=== PATIENT | male | born 1945 | race Caucasian/White ===

== ENCOUNTER 2018-01-28 22:46 | Observation (INO) ==
[2018-01-28 23:36] LABS: Basophils # 0.1 K/mcL (0.0-0.2); Basophils % 0.9 %; Eosinophils # 0.2 K/mcL (0.0-0.6); Eosinophils % 3.6 %; Hematocrit 39.1 % (37.5-50.1); Hemoglobin 13.1 g/dL (12.9-16.9); Immature Granulocytes % 0.2 % (0-4); Lymphocytes # 1.5 K/mcL (0.6-4.6); Lymphocytes % 23.7 %; Mean Corpuscular HGB Conc 33.5 g/dL (31.6-35.5); Mean Corpuscular Hemoglobin 29.8 pg (28.0-33.3); Mean Corpuscular Volume 89.1 fL (83.0-100.0); Mean Platelet Volume 11.6 fL (9.4-12.4); Monocytes # 0.4 K/mcL (0.0-1.3); Monocytes % 6.6 %; Neutrophils # 4.1 K/mcL (1.6-8.9); Platelet Count 115 K/mcL (140-400); Red Blood Count 4.39 M/mcL (4.19-5.50); Red Cell Distribution Width 14.3 % (11.5-14.5)
[2018-01-28 23:51] LABS: Bilirubin,Urine Negative (Negative); Blood,Urine Large (Negative); Clarity,Urine Cloudy (Clear); Color,Urine Yellow (Yellow); Glucose,Urine (UA) 100 mg/dL (Normal); Ketones,Urine Negative (Negative); Leukocyte Esterase,Urine Moderate (Negative); Nitrite,Urine Negative (Negative); Protein,Urine 30 mg/dL (Neg-Trace); Specific Gravity,Urine 1.026 (1.010-1.025); Urobilinogen,Urine Normal (Normal)
[2018-01-28 23:53] LABS: Hyaline Casts,Urine None Seen per lpf (None-Few); RBC,Urine TNTC per hpf (0-3); Squamous Epithelial Cell,Urine Moderate per lpf (None-Few)
--- NOTE | 2018-01-28 23:53 | Emergency Department Note ---
Disposition Clinical Impression: Chest discomfort Disposition: Admitted As Inpatient Condition: Fair Chest Pain HPI - General Chief Complaint: ED Chest Pain Stated Complaint: rib pain both sides injury from working Time Seen by Provider: 01/28/18 22:56 Source: patient Limitations: no limitations - History of Present Illness HPI Narrative: 72 year old male with diabetes presents with chest pain. Patient stated he lay down on his left side of body in work today. He suddenly felt a rock in his left side chest. He changed position to his right side. he felt a rock in right side chest as well. He had to stand up to relieve the pain. . Pt reported the uncomfortable of chest lasted around minutes. No shortness of breath. But the deep breath triggered bilateral ribs uncomfortable sometimes today. Pt has open heart surgery 16 years ago for aortic valve replacement. Pt complaint: chest pain Onset (ago): hour(s) (12) Duration: intermittent Onset: other Pain Location: left chest, right chest Severity scale (1-10): 8 Quality: other (rock in chest ) - Related Data Home Medications Medication Instructions Recorded Confirmed Albuterol Sulfate [Proair Hfa] 2 puff IH Q4H PRN 01/29/18 01/29/18 Aspirin Enteric Coated [Aspirin EC] 81 mg PO DAILY 01/29/18 01/29/18 Atenolol [Tenormin] 50 mg PO DAILY 01/29/18 01/29/18 Atorvastatin Calcium [Lipitor] 80 mg PO HS 01/29/18 01/29/18 Cholecalciferol (Vitamin D3) 2,000 unit PO DAILY 01/29/18 01/29/18 [Vitamin D3] Cyanocobalamin (Vitamin B-12) 1,000 mcg PO DAILY 01/29/18 01/29/18 [Vitamin B-12] Diltiazem CD (24hr) [Cardizem CD] 180 mg PO DAILY 01/29/18 01/29/18 Ezetimibe [Ezetimibe] 10 mg PO HS 01/29/18 01/29/18 Famotidine [Pepcid] 40 mg PO BID 01/29/18 01/29/18 Fenofibrate Nanocrystallized 145 mg PO DAILY 01/29/18 01/29/18 [Fenofibrate] Fish Oil/Dha/Epa [Fish Oil 1,200 1 cap PO DAILY 01/29/18 01/29/18 mg Fish Oil] Furosemide [Lasix] 40 mg PO DAILY 01/29/18 01/29/18 Losartan Potassium [Cozaar] 50 mg PO DAILY 01/29/18 01/29/18 Meclizine HCl [Verticalm] 25 mg PO HS 01/29/18 01/29/18 Potassium Citrate [Urocit-K] 10 meq PO BID 01/29/18 01/29/18 Rivaroxaban [Xarelto] 15 mg PO DAILY 01/29/18 01/29/18 Tamsulosin [Flomax] 0.4 mg PO HS 01/29/18 01/29/18 Allergies Allergy/AdvReac Type Severity Reaction Status Date / Time insulin glargine Allergy Rash Verified 01/29/18 09:36 [From [place]] Constitutional: Denies: fever, chills, weakness, weight change Eyes: Denies: eye pain, eye discharge, vision change ENT ED: Denies: ear pain, throat pain, dental pain, hearing loss, epistaxis, congestion, dysphagia Cardiovascular: Reports: chest pain. Denies: palpitations, dyspnea on exertion , edema, syncope Respiratory: Denies: cough, dyspnea, wheezes, hemoptysis, stridor Gastrointestinal: Denies: abdominal pain, nausea, vomiting, diarrhea, constipation, hematemesis, melena, hematochezia Genitourinary: Denies: urgency, dysuria, frequency, hematuria Musculoskeletal: Denies: back pain, neck pain, arthralgia, myalgia Integumentary: Denies: rash, abrasion, lesions Neurological: Denies: headache, weakness, numbness, paresthesias, confusion, abnormal gait, vertigo Psychiatric: Denies: anxiety, depression, suicidal thoughts, homicidal thoughts , auditory hallucinations, visual hallucinations Endocrine: Denies: fatigue Hematological/Lymphatic: Denies: easy bleeding, easy bruising Allergic/Immunologic: Denies: facial swelling, urticaria Chest Pain PMH - Past Medical History Medical history: Reports: arthritis, atrial fibrillation, coronary artery disease, diabetes, GERD, hyperlipidemia, hypertension, kidney stones, peripheral artery disease, valvular heart disease, other Surgical history: Reports: angioplasty/stent, cholecystectomy, coronary bypass ( CABG), other Psychiatric history: Reports: no psych history - Social History Smoking Status: Never smoker Alcohol use: Reports: none Drug use: Reports: none Physical Exam - General Limitations: no limitations General appearance: alert - Head Head exam: atraumatic, normocephalic, normal inspection - Eye Eye exam: Present: normal appearance, PERRL, EOMI - ENT ENT exam: normal exam, normal oropharynx, mucous membranes moist - Neck Neck exam: Present: normal inspection, full ROM, trachea midline - Chest Chest inspection: Present: normal inspection, symmetric chest wall rise, tenderness (mild tender to palpation on both side ribs) - Respiratory Respiratory exam: Present: normal lung sounds bilaterally - Cardiovascular Cardiovascular exam: Present: irregular rhythm. Absent: systolic murmur, diastolic murmur - Abdominal Exam Abdominal exam: Present: soft, Non-Tender. Absent: tenderness, distention, guarding, rebound, rigidity - Extremities Exam Extremities exam: Present: normal inspection, full ROM. Absent: tenderness, pedal edema - Back Exam Back exam: Present: normal inspection, full ROM. Absent: tenderness - Neurological Exam Neurological exam: Present: alert, oriented X3 - Psychiatric Psychiatric exam: Present: normal affect, normal mood - Skin Skin exam: Present: warm, dry, intact, normal color Course Vital Signs Temperature 97.7 F 01/28/18 22:57 Pulse Rate 86 01/28/18 22:57 Respiratory Rate 16 01/28/18 22:57 Blood Pressure 139/85 01/28/18 22:57 O2 Sat by Pulse Oximetry 95 01/28/18 22:57 Temperature 98.0 F 01/30/18 07:37 Pulse Rate 62 01/30/18 07:37 Respiratory Rate 20 01/30/18 07:37 Blood Pressure 130/82 01/30/18 07:37 O2 Sat by Pulse Oximetry 98 01/30/18 07:37 Oxygen Delivery Oxygen Delivery Room Air Chest Pain - MDM Narrative Medical decision making narrative: 72 year old male with history of DM, hypertension, hyperlipidemia, past open heart surgery presents with nontraumatic chest pain. Pt reported feeling rocks in ribs when working. The pain lasted couple of minutes. No associate with shortness of breath. But deep breath exacerbate the pain. Physical exam, irregular rhythm, no murmur, bilateral anterior ribs mild tender to palpation. Chest xray: no acute change. EKG: a-fib. labs: negative troponin. cr. 1.[address] Saavedra saw the patient as well, considering the past heart history, heart score 4, will admit the patient for chest pain rule out. - Lab Data Result diagrams: 01/30/18 06:34 01/30/18 06:34 Lab Results 01/28/18 01/28/18 01/28/18 Range/Units 23:10 23:10 23:44 WBC 6.3 (4.3-11.1) K/mcL RBC 4.39 (4.19-5.50) M/mcL Hgb 13.1 (12.9-16.9) g/dL Hct 39.1 (37.5-50.1) % MCV 89.1 (83.0-100.0) fL MCH 29.8 (28.0-33.3) pg MCHC 33.5 (31.6-35.5) g/dL RDW 14.3 (11.5-14.5) % Plt Count 115 L (140-400) K/mcL MPV 11.6 (9.4-12.4) fL Immature Gran % 0.2 (0-4) % Seg Neutrophils % 65.0 % Lymphocytes % 23.7 % Monocytes % 6.6 % Eosinophils % 3.6 % Basophils % 0.9 % Neutrophils # 4.1 (1.6-8.9) K/mcL Lymphocytes # 1.5 (0.6-4.6) K/mcL Monocytes # 0.4 (0.0-1.3) K/mcL Eosinophils # 0.2 (0.0-0.6) K/mcL Basophils # 0.1 (0.0-0.2) K/mcL Sodium 141 (136-145) mEq/L Potassium 4.0 (3.5-5.1) mEq/L Chloride 103 (98-107) mEq/L Carbon Dioxide 28 (23-29) mEq/L BUN 33 H (8-23) mg/dL Creatinine 1.85 H (0.70-1.30) mg/dL Est GFR ( Amer) 44 L (> 60) Est GFR (Non-Af Amer) 36 L (> 60) BUN/Creatinine Ratio 18 (6-26) Glucose 208 H (70-105) mg/dL Calculated Osmolality 305 H (280-300) Calcium 10.4 H (8.6-10.3) mg/dL Total Bilirubin 0.8 (0.3-1.0) mg/dL AST 16 (13-39) Units/L ALT 11 (7-52) Units/L Alkaline Phosphatase 38 (34-104) Units/L Troponin I < 0.03 (< 0.04) ng/mL Serum Total Protein 7.0 (6.4-8.9) g/dL Albumin 4.7 (3.5-5.7) g/dL Globulin 2.3 L (2.4-3.5) g/dL Albumin/Globulin Ratio 2.0 (1.1-2.2) Urine Color Yellow (Yellow) Urine Clarity Cloudy A (Clear) Urine pH 6.0 (5.0-8.0) pH Units Ur Specific [place] 1.026 H (1.010-1.025) Urine Protein 30 H (Neg-Trace) mg/dL Urine Glucose (UA) 100 H (Normal) mg/dL Urine Ketones Negative (Negative) mg/dL Urine Blood Large H (Negative) Urine Nitrite Negative (Negative) Urine Bilirubin Negative (Negative) Urine Urobilinogen Normal (Normal) mg/dL Ur Leukocyte Esterase Moderate H (Negative) Urine Microscopic RBC TNTC H (0-3) per hpf Urine Microscopic WBC 3-5 H (0-3) per hpf Ur Squamous Epith Cells Moderate H (None-Few) per lpf Calcium Oxalate Crystal Present Urine Bacteria Few (None-Few) per hpf Hyaline Casts None Seen (None-Few) per lpf Urine Mucus Few (Few) Ur Culture Indicated? YES A (NO) Heart Score - Score History: Moderately Suspicious EKG: Normal Age: Greater than 65 Risk Factors: 1-2 risk factors Troponin: Less than normal limit HEART Score Total: 4 Attestation Statement - Attestation Attestation: I examined this patient and my medical decision-making was reviewed with the Resident Physician. I agree with the documented findings, disposition and treatment plan as described except to the extent set forth below. Chest pain, HEART score is 4, will need admission due to intermittent nature of pain and significant risk factors.
[2018-01-29 00:02] LABS: Troponin I < 0.03 ng/mL (< 0.04)
[2018-01-29 00:03] LABS: Alanine Aminotransferase 11 Units/L (7-52); Albumin 4.7 g/dL (3.5-5.7); Alkaline Phosphatase 38 Units/L (34-104); Aspartate Amino Transferase 16 Units/L (13-39); BUN/Creatinine Ratio 18 (6-26); Bilirubin,Total 0.8 mg/dL (0.3-1.0); Blood Urea Nitrogen 33 mg/dL (8-23); Calcium 10.4 mg/dL (8.6-10.3); Carbon Dioxide 28 mEq/L (23-29); Chloride 103 mEq/L (98-107); Globulin 2.3 g/dL (2.4-3.5); Glucose 208 mg/dL (70-105); Osmolality,Calculated 305 (280-300); Sodium 141 mEq/L (136-145); eGFR For African Americans 44 (> 60); eGFR For Non-African Americans 36 (> 60)
[2018-01-29 00:14] LABS: Bacteria,Urine Few per hpf (None-Few); Calcium Oxalate Crystals,Urine Present; Mucus,Urine Few (Few)
[2018-01-29] MEDS ORDERED: Aspirin 325 MG TABLET PO ONE (02:29)
[2018-01-29] MEDS ORDERED: traMADol 50 MG TABLET PO PRN (04:45)
[2018-01-29] MEDS ORDERED: Naloxone 0.4 MG/ML INJ IVP PRN (04:45)
[2018-01-29] MEDS ORDERED: Acetaminophen 325 MG TABLET PO PRN (04:45)
[2018-01-29] MEDS ORDERED: Nitroglycerin 0.4 MG TAB.SUBL SL PRN (04:49)
--- NOTE | 2018-01-29 04:58 | Internal Med History&Physical ---
Date of Encounter: 01/29/18 Time of Encounter: 04:00 Internal Medicine - H&P: HPI Chief complaint: chest pain Admitted From: Emergency Dept Plans for Post Hospital Care: Home History of present illness: Mr. Sarmiento is a 72 year old male who presents to the ER tonight with complaints of bilateral chest pain. He was seen and evaluated in the ER and admitted to hospitalist service for further workup and care. Upon my assessment of the patient, patient states he had pain in his chest which was easily reproducible and related to muscle/skeletal etiology. 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 He changed positions while lying on his right side and turned to his left side to alleviate the pain from his right side. He then subsequently developed pain in his left side ribs as well. Because of the chest pain, he came to ER for evaluation. He was admitted for chest pain given his prior history of valve surgery. Upon my history and exam, I suspect this is musculoskeletal etiology and not true cardiac pain whatsoever. He denies any chest pain on exertion, shortness of breath, palpitations, or racing heartbeats. He admits that this is easily reproducible chest wall pain and I was able to easily reproduce his chest pain on exam and palpation of his both lower ribs. He has a history of nonobstructive coronary disease and had a heart catheterization 2 years ago with minimal coronary disease noted. At the present time, he denies any trauma or injury to his chest wall. He denies any recent falling or syncopal spells. I discussed with him my plan to image his chest with rib view x-rays and to obtain an echocardiogram. Meanwhile, we will cycle troponins and monitor him closely. If the above are negative, he can likely be discharged home with close outpatient follow-up. He does see Dr. Correa from cardiology. I am not convinced he needs a stress test as his pain does not appear to be cardiac in nature. This can be done as an outpatient as well and if necessary. He agreed and voiced understanding. Past Med Surg Social Fam HX - Past Medical History Attestation: Yes The following information was validated with the patient. Source: patient, old records reviewed Medical history: arthritis, atrial fibrillation, coronary artery disease, diabetes, GERD, hyperlipidemia, hypertension, kidney stones, peripheral artery disease, valvular heart disease, other Additional medical history: AAA Psychiatric history: no psych history - Past Surgical History Surgical History: angioplasty/stent, cholecystectomy Additional surgical history: STONE EXTRACTION (RIGHT). BIOPROSTHETIC AVR - Social History Smoking Status: Never smoker Smokeless Tobacco Status: No Alcohol use: none Drug use: none Current living situation: Home Activity Level: Independent ambulation Recent Out of Country Travel Within the Last 8 Weeks: No - Family History Mother Living Status: Hx Family Cardiac Disorders: Yes (HTN, DC) Hx Family Respiratory Disorders: No Hx Family Cancer: No Hx Family GI Disorders: No Hx Family Endocrine Disorder: No Hx Family Neuromuscular Disorders: No Hx Family Neurologic Disorders: No Hx Family HEENT Disorders: No Hx Family Autoimmune Disorders: No Internal Medicine - H&P: Meds Aspirin [Adult Low Dose Aspirin EC] 81 mg PO QAM 04/30/15 [History] Atenolol [Tenormin] 50 mg PO QAM 04/30/15 [History] Atorvastatin Calcium [Lipitor] 80 mg PO QPM 04/30/15 [History] Cholecalciferol (Vitamin D3) [Vitamin D3] 2,000 unit PO QAM 04/30/15 [History] Ezetimibe [Zetia] 10 mg PO QPM 04/30/15 [History] Fenofibrate Nanocrystallized [Tricor] 145 mg PO QPM 04/30/15 [History] Furosemide [Lasix] 40 mg PO QAM 04/30/15 [History] Nitroglycerin [Nitrostat] 0.4 mg SL AD PRN 04/30/15 [History] [place]-3/Dha/Epa/Fish Oil [Fish Oil 1,000 mg Softgel] 1,000 mg PO QAM 04/30/15 [ History] Rivaroxaban [Xarelto] 15 mg PO QAM 04/30/15 [History] Tamsulosin [Flomax] 0.4 mg PO QPM 04/30/15 [History] Albuterol Sulfate [Proair Hfa] 2 puff IH Q4H PRN 10/17/15 [History] Losartan [Cozaar] 50 mg PO QAM 10/17/15 [History] raNITIdine HCl [Zantac] 150 mg PO QPM 10/17/15 [History] Diltiazem HCl [Cardizem LA] 180 mg PO DAILY 08/22/16 [History] Famotidine 40 mg PO HS 08/22/16 [History] Folic Acid 1 mg PO DAILY #30 tablet 08/08/17 [Rx] 3 Allergy/AdvReac Type Severity Reaction Status Date / Time insulin glargine Allergy Rash Verified 01/28/18 23:01 [From Lantus] - Constitutional Constitutional: no chills, no fever(s) - EENT Eyes: no change in vision Ears: no ear pain, no tinnitus Nose, mouth and throat: no nasal congestion, no sore throat - Cardiovascular Cardiovascular ROS IM: chest pain, no dyspnea, no dyspnea on exertion, no edema , no lightheadedness, no palpitations - Respiratory Respiratory: no cough, no hemoptysis, no dyspnea on exertion, no chest congestion, no excessive phlegm production, no change in phlegm color, no pain with cough - Gastrointestinal Gastrointestinal: no abdominal pain, no diarrhea, no hematemesis, no hematochezia, no melena, no nausea, no vomiting - Genitourinary Genitourinary ROS male: no dysuria, no flank pain - Musculoskeletal Musculoskeletal ROS IM: no arthralgias, no back pain - Integumentary Integumentary IM: no rash, no jaundice - Neurological Neurological ROS: no dizziness, no focal weakness, no frequent falls, no headache(s) - Psychiatric Psychiatric: no anxiety, no depression - Endocrine Endocrine IM: no polydipsia, no polyuria - Hematologic/Lymphatic Hematologic/Lymphatic: no easy bruising, no lymphadenopathy - Allergic/Immunologic Allergic/Immunologic: no wheezing, no GI upset with certain foods - Constitutional Vitals: Temp Pulse Resp BP Pulse Ox 97.7 F 61 16 148/82 96 01/29/18 01:18 01/29/18 01:18 01/29/18 01:18 01/29/18 01:18 01/29/18 01:18 General appearance: Present: cooperative, A&O X 3, pleasant, no acute distress, answers questions appropriately - Head Head exam: Present: atraumatic, normal inspection - Eye Eye exam: Present: EOMI, normal appearance, PERRL. Absent: scleral icterus Pupils: Present: normal accommodation - ENT ENT exam: Present: mucous membranes dry, normal exam, normal oropharynx - Neck Neck exam general surgery: Present: full ROM, supple. Absent: tenderness, nuchal rigidity, thyromegaly - Expanded Neck Exam Neck exam: Absent: carotid bruit - Respiratory Respiratory exam: Present: chest wall tenderness (easily reproducible pin in both lower ribs upon palpation), CTAB. Absent: rales, rhonchi, wheezes - Cardiovascular Cardiovascular exam: Present: irregular rhythm, +S1, +S2, systolic murmur. Absent: diastolic murmur, JVD - GI/Abdominal GI/Abdominal exam: Present: normal bowel sounds, soft. Absent: guarding, hepatomegaly, mass, rebound, splenomegaly, tenderness - Extremities Exam Extremities exam: Present: full ROM, normal capillary refill, warm, radial pulses palpable and symmetrical. Absent: calf tenderness, joint swelling, pedal edema - Back Exam Back exam: Absent: CVA tenderness (L), CVA tenderness (R) - Neurological Exam Neurological exam: Present: alert, CN II-XII intact, oriented X3, no focal deficits - Psychiatric Psychiatric exam: Present: normal affect, normal mood - Skin Skin exam: Present: dry, intact, warm Internal Med - H&P Results - Labs CBC & Chem 7: 01/28/18 23:10 01/28/18 23:10 - EKG Data -: EKG Interpreted by Myself - EKG Data Prior EKG available for review: no EKG comments: 01/29/18 05:02 Atrial Fibrillation with rate control - Diagnostic Studies Chest x-ray Status: image reviewed by me (negative; do not appreciate rib fractures ) - Assessment and plan (1) Chest pain Current Visit: Yes Status: Acute Assessment and plan: 1. Will order serial troponins and EKG's. 2. Will order ECHO to assess LV function and to assess AVR. 3. Strongly suspect musculoskeletal etiology. Qualifiers: Chest pain type: intercostal pain Qualified Code(s): R07.82 - Intercostal pain (2) Atrial fibrillation Current Visit: Yes Status: Chronic Assessment and plan: 1. Continue home meds and adjust as needed. 2. Continue home dose of Xarelto. Qualifiers: Atrial fibrillation type: chronic Qualified Code(s): I48.2 - Chronic atrial fibrillation (3) CKD (chronic kidney disease) Current Visit: No Status: Chronic Assessment and plan: 1. Will hold diuretics for now and other potential nephrotoxins. 2. Hydrayte with IVF and monitor I/O. 3. Nephrology may need to be consulted for ongoing issues. Qualifiers: Chronic kidney disease stage: stage 3 (moderate) Qualified Code(s): N18.3 - Chronic kidney disease, stage 3 (moderate) (4) DVT prophylaxis Current Visit: No Status: Acute Assessment and plan: 1. Continue home dose of Xarelto.
--- NOTE | 2018-01-29 07:20 | Electrocardiograph Report ---
[place] [id number] Test Date: 2018-01-28 Pat Name: Lebron [place] Department: 104 Room: 3B Gender: M [employer] Developer: MIRELLA : 1945 Requested By: Elver Atkinson Order Number: [id number] Reading MD: Marin White Measurements Intervals [place] Rate: 60 P: PA: 0 QRS: 61 QRSD: 109 T: 23 QT: 404 QTc: 405 Interpretive Statements ATRIAL FIBRILLATION Electronically Signed On 01-29-2018 7:18:15 EDT by Marin White
[2018-01-29] MEDS: Cholecalciferol (D-3) 1,000 UNIT TABLET PO SCH (08:59)
[2018-01-29] MEDS: Diltiazem CD (24hr) 180 MG CAPSULE PO SCH (08:59)
[2018-01-29] MEDS: Aspirin Enteric Coated 81 MG Tablet PO SCH (08:59)
[2018-01-29] MEDS: Folic Acid 1 MG TABLET PO SCH (09:00)
[2018-01-29] MEDS: *HR* Rivaroxaban 15 MG TABLET PO SCH (09:00)
--- NOTE | 2018-01-29 13:00 | Internal Med Progress Note ---
Date of Encounter: 01/29/18 Time of Encounter: 12:58 - Assessment and plan (1) Chest pain Current Visit: Yes Status: Acute Assessment and plan: Atypical chest pain and Appears to be musculoskeletal as the patient is having reproducible pain to palpation along the bilateral costal margins I strongly believe this to be musculoskeletal in origin Patient denies any shortness of breath, dizziness, diaphoresis, nausea, palpitations Cardiac enzymes negative 3 EKG reveals atrial fibrillation, no ST changes concerning for ischemia Echocardiogram pending Hold off on additional cardiac workup at this time Qualifiers: Chest pain type: intercostal pain Qualified Code(s): R07.82 - Intercostal pain (2) CKD (chronic kidney disease) Current Visit: Yes Status: Chronic Assessment and plan: History of CKD stage III Appears to have an acute on chronic kidney injury Holding diuretics and potential nephrotoxins IVF, monitor I's and O's Consider nephrology consult if renal function does not improve tomorrow Daily BMP Qualifiers: Chronic kidney disease stage: stage 3 (moderate) Qualified Code(s): N18.3 - Chronic kidney disease, stage 3 (moderate) (3) Atrial fibrillation Current Visit: Yes Status: Chronic Assessment and plan: History of atrial fibrillation Review of telemetry reveals A. fib with rate control Continue current home medications and adjust as necessary Continue Xarelto Qualifiers: Atrial fibrillation type: chronic Qualified Code(s): I48.2 - Chronic atrial fibrillation (4) [id number] kidney injury Current Visit: Yes Status: Acute Assessment and plan: Etiology unclear Likely due to diuretic use See above Qualifiers: Acute renal failure type: unspecified Chronic kidney disease stage: stage 3 (moderate) Qualified Code(s): N17.9 - Acute kidney failure, unspecified; N18.3 - Chronic kidney disease, stage 3 (moderate) (5) DVT prophylaxis Current Visit: No Status: Acute Assessment and plan: Continue Xarelto. - Time Spent With Patient Total time spent is greater than 50% in coordination of care (as documented) at patient's floor/unit and/or counseling patient: 25 - 35 minutes - Subjective Interval history: Patient seen and examined at bedside today. No acute changes overnight. Continued to report bilateral rib pain. However denies any chest pain, shortness of breath, diaphoresis or nausea. Additionally, patient denies any urinary symptoms. - Constitutional Vitals: Temp Pulse Resp BP Pulse Ox 98.0 F 75 18 130/73 93 01/29/18 10:46 01/29/18 10:46 01/29/18 10:46 01/29/18 10:46 01/29/18 10:46 General appearance: Present: cooperative, A&O X 3, pleasant, no acute distress, answers questions appropriately - Head Head exam: Present: atraumatic, normocephalic - Eye Eye exam: Present: PERRL, conjuntiva pink, sclera anicteric Pupils: Present: PERRL - Neck Neck exam general surgery: Present: supple, trachea midline. Absent: lymphadenopathy - Respiratory Respiratory exam: Present: chest wall tenderness (Tenderness along bilateral costal margins, denies any pain with inspiration or expiration), CTAB. Absent: accessory muscle use, prolonged expiratory phase, rales, respiratory distress, rhonchi, wheezes, tachypnea - Cardiovascular Cardiovascular exam: Present: RRR, +S1, +S2. Absent: diastolic murmur, gallop, rubs, systolic murmur - GI/Abdominal GI/Abdominal exam: Present: normal bowel sounds, soft, no peritoneal signs. Absent: distended, tenderness - Extremities Exam Extremities exam: Present: warm, radial pulses palpable and symmetrical. Absent : calf tenderness, cyanotic, pedal edema - Neurological Exam Neurological exam: Present: CN II-XII intact, oriented X3, no focal deficits. Absent: pronater drift, facial droop, speech deficit - Skin Skin exam: Present: dry, intact Internal Medicine: Result - Labs CBC & Chem 7: 01/28/18 23:10 01/28/18 23:10 Labs: Cardiac Enzymes 01/29/18 Range/Units 06:27 Troponin I < 0.03 (< 0.04) ng/mL Consult Discharge Plan - Plan Referrals: Monroe Green MD [Primary Care Provider] - 02/03/18 2:30 pm
[2018-01-29] MEDS ORDERED: 0.9 % Sodium Chloride 1,000 ML IVC SCH (16:30)
[2018-01-29] MEDS ORDERED: Famotidine 20 MG TABLET PO SCH ×2 (21:00)
[2018-01-30 06:48] LABS: Immature Granulocytes % 0.3 % (0-4); Red Cell Distribution Width 14.5 % (11.5-14.5)
[2018-01-30 06:50] LABS: Basophils % 1.1 %; Eosinophils # 0.2 K/mcL (0.0-0.6); Eosinophils % 4.9 %; Hemoglobin 11.5 g/dL (12.9-16.9); Immature Platelets 5.9 % (1.1-6.1); Lymphocytes # 1.1 K/mcL (0.6-4.6); Mean Corpuscular HGB Conc 32.9 g/dL (31.6-35.5); Mean Corpuscular Hemoglobin 29.7 pg (28.0-33.3); Mean Corpuscular Volume 90.4 fL (83.0-100.0); Mean Platelet Volume 11.2 fL (9.4-12.4); Monocytes # 0.3 K/mcL (0.0-1.3); Monocytes % 7.6 %; Neutrophils # 2.1 K/mcL (1.6-8.9); Red Blood Count 3.87 M/mcL (4.19-5.50); Segmented Neutrophils % 56.1 %
[2018-01-30 06:56] LABS: Platelet Count 91 K/mcL (140-400)
[2018-01-30 07:06] LABS: Alanine Aminotransferase 8 Units/L (7-52); Albumin 3.7 g/dL (3.5-5.7); Albumin/Globulin Ratio 1.9 (1.1-2.2); Alkaline Phosphatase 34 Units/L (34-104); Aspartate Amino Transferase 11 Units/L (13-39); BUN/Creatinine Ratio 18 (6-26); Bilirubin,Total 0.8 mg/dL (0.3-1.0); Blood Urea Nitrogen 24 mg/dL (8-23); Calcium 8.9 mg/dL (8.6-10.3); Carbon Dioxide 28 mEq/L (23-29); Chloride 110 mEq/L (98-107); Cholesterol 107 mg/dL (< 200); Glucose 166 mg/dL (70-105); HDL Cholesterol 27 mg/dL (40-59); LDL Cholesterol,Calculated 56 mg/dL (0-99); Magnesium 1.9 mg/dL (1.6-2.6); Osmolality,Calculated 302 (280-300); Potassium 3.8 mEq/L (3.5-5.1); Sodium 142 mEq/L (136-145); Total Protein 5.7 g/dL (6.4-8.9); Triglycerides 120 mg/dL (< 150); eGFR For African Americans > 60 (> 60); eGFR For Non-African Americans 52 (> 60)
[2018-01-30] MEDS: Aspirin Enteric Coated 81 MG Tablet PO SCH (09:39)
[2018-01-30] MEDS: Cholecalciferol (D-3) 1,000 UNIT TABLET PO SCH (09:39)
[2018-01-30] MEDS: Folic Acid 1 MG TABLET PO SCH (09:40)
[2018-01-30] MEDS: Diltiazem CD (24hr) 180 MG CAPSULE PO SCH (09:40)
[2018-01-30] MEDS: *HR* Rivaroxaban 15 MG TABLET PO SCH (09:40)
[2018-01-30 12:15] VITALS: BP 130/78
--- NOTE | 2018-01-30 14:25 | Discharge Summary ---
- NOTES TO OUTPATIENT PROVIDER Notes to Outpatient Provider: Presented with chest pain to palpation. Reported that he was lying on his chest while repairing a well and began to experience intense chest pain afterward. Has history of open heart surgery/sternotomy. Pain along bilateral costal margins. Subsided morning of discharge. RAYMOND 2/2 diuretic use and poor oral intake. held diuretics and gave gentle hydration. renal function returned to baseline. no pending studies Date of Encounter: 01/30/18 Time of Encounter: 14:23 - Discharge Diagnosis (1) Chest pain Priority: Primary Status: Acute Assessment and Plan: Atypical chest pain and Appears to be musculoskeletal as the patient is having reproducible pain to palpation along the bilateral costal margins I strongly believe this to be musculoskeletal in origin Patient denies any shortness of breath, dizziness, diaphoresis, nausea, palpitations Cardiac enzymes negative 3 EKG reveals atrial fibrillation, no ST changes concerning for ischemia Echocardiogram-EF 55%, normal LV chamber size thickness and function, asymmetric hypertrophy of basal septum, atypical septal wall motion consistent with postoperative status, indeterminate diastolic function, mild dilated RV with normal function, bioprosthetic aortic valve appears well-seated, mild tricuspid regurg, mild pulmonary HTN Patient reports that discomfort has resolved as of this morning No events noted on telemetry throughout his stay With negative workup, cessation of chest pain and uneventful hospital course patient is being discharged this afternoon. He has been instructed to return to the ED should chest pain/discomfort return. Patient verbalizes understanding denies any further questions at this time. Additionally, has been instructed to follow with his PCP within 1 week of discharge of his senior account representative in 1-2 weeks of discharge Qualifiers: Chest pain type: intercostal pain Qualified Code(s): R07.82 - Intercostal pain (2) CKD (chronic kidney disease) Priority: Secondary Status: Chronic Assessment and Plan: History of CKD stage III Acute on chronic kidney injury secondary to diuretics and poor oral intake Held diuretics and avoid nephrotoxins, renal function improved Patient now back to baseline renal function Okay to resume diuretics at discharge Instructed to follow up with senior account representative in 1-2 weeks of DC, instructed to follow-up with PCP within one week Qualifiers: Chronic kidney disease stage: stage 3 (moderate) Qualified Code(s): N18.3 - Chronic kidney disease, stage 3 (moderate) (3) Atrial fibrillation Priority: Secondary Status: Chronic Assessment and Plan: History of atrial fibrillation Review of telemetry reveals A. fib with rate control Continue Xarelto DC Qualifiers: Atrial fibrillation type: chronic Qualified Code(s): I48.2 - Chronic atrial fibrillation (4) [id number] kidney injury Priority: Secondary Status: Acute Assessment and Plan: Resolving at time of discharge Renal function improving See plan above Qualifiers: Acute renal failure type: unspecified Chronic kidney disease stage: stage 3 (moderate) Qualified Code(s): N17.9 - Acute kidney failure, unspecified; N18.3 - Chronic kidney disease, stage 3 (moderate) (5) DVT prophylaxis Priority: Secondary Status: Acute Hospital course: Mr. Sarmiento is a 72 year old male please see assessment and plan for hospital course Discharge discussed with: patient, family, nurse - Time Spent with Patient Total time spent providing and/or coordinating discharge services: Less than 30 minutes - Discharge Medications Home Medications: Albuterol Sulfate [Proair Hfa] 2 puff IH Q4H PRN 01/29/18 [History] Aspirin Enteric Coated [Aspirin EC] 81 mg PO DAILY 01/29/18 [History] Atenolol [Tenormin] 50 mg PO DAILY 01/29/18 [History] Atorvastatin Calcium [Lipitor] 80 mg PO HS 01/29/18 [History] Cholecalciferol (Vitamin D3) [Vitamin D3] 2,000 unit PO DAILY 01/29/18 [History] Cyanocobalamin (Vitamin B-12) [Vitamin B-12] 1,000 mcg PO DAILY 01/29/18 [ History] Diltiazem CD (24hr) [Cardizem CD] 180 mg PO DAILY 01/29/18 [History] Ezetimibe 10 mg PO HS 01/29/18 [History] Famotidine [Pepcid] 40 mg PO BID 01/29/18 [History] Fenofibrate Nanocrystallized [Fenofibrate] 145 mg PO DAILY 01/29/18 [History] Fish Oil/Dha/Epa [Fish Oil 1,200 mg Fish Oil] 1 cap PO DAILY 01/29/18 [History] Furosemide [Lasix] 40 mg PO DAILY 01/29/18 [History] Losartan Potassium [Cozaar] 50 mg PO DAILY 01/29/18 [History] Meclizine HCl [Verticalm] 25 mg PO HS 01/29/18 [History] Potassium Citrate [Urocit-K] 10 meq PO BID 01/29/18 [History] Rivaroxaban [Xarelto] 15 mg PO DAILY 01/29/18 [History] Tamsulosin [Flomax] 0.4 mg PO HS 01/29/18 [History] Allergies/Adverse Reactions: 3 Allergy/AdvReac Type Severity Reaction Status Date / Time insulin glargine Allergy Rash Verified 01/29/18 09:36 [From Lantus] Date of admission: 01/29/18 00:43 Primary care physician: Monroe Green MD Discharging clinician: Jeremy Clark Anticipated date of discharge: 01/30/18 - Constitutional Vitals: Temp Pulse Resp BP Pulse Ox 98.1 F 72 18 130/78 97 01/30/18 12:11 01/30/18 12:11 01/30/18 12:11 01/30/18 12:11 01/30/18 12:11 General appearance: Present: cooperative, A&O X 3, pleasant, no acute distress, answers questions appropriately - Head Head exam: Present: atraumatic, normocephalic - Eye Eye exam: Present: PERRL, conjuntiva pink, sclera anicteric Pupils: Present: PERRL - Neck Neck exam general surgery: Present: supple, trachea midline. Absent: lymphadenopathy - Respiratory Respiratory exam: Present: CTAB. Absent: accessory muscle use, rales, rhonchi, wheezes - Cardiovascular Cardiovascular exam: Present: RRR, +S1, +S2. Absent: diastolic murmur, gallop, rubs, systolic murmur - GI/Abdominal GI/Abdominal exam: Present: normal bowel sounds, soft, no peritoneal signs. Absent: distended, tenderness - Extremities Exam Extremities exam: Present: warm, radial pulses palpable and symmetrical. Absent : calf tenderness, cyanotic, pedal edema - Neurological Exam Neurological exam: Present: CN II-XII intact, oriented X3, no focal deficits. Absent: pronater drift, facial droop, speech deficit - Skin Skin exam: Present: dry, intact - Patient Status Disposition: Home, Self-Care Condition: Fair Functional capacity at discharge: independent ambulation Overall status at discharge: patient is back to baseline - Discharge Instructions Follow Up With: Monroe Green MD [Primary Care Provider] - 02/03/18 2:30 pm - Diet and Activity Activity: resume usual activities as tolerated Diet: advance to your usual diet
--- NOTE | 2018-01-30 17:48 | Electrocardiograph Report ---
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
== END 2018-01-30 16:26 | disposition home or self-care (01) ==
LOC: 3BNU 22:46 → EMEROO 22:46 → 3BNU 01-29 00:58
PROVIDERS: ADMIT Family Medicine; ATTEND Family Medicine